=== PATIENT | female | born 1975 | race African-American/Black ===

== ENCOUNTER 2023-01-23 16:41 | Emergency (ER) | payer OTHER ==
[~2023-01-23] VITALS: Ht 170.2 cm; Wt 95.3 kg
[2023-01-23 17:26] LABS: BASOPHILS # (AUTO) 0.1 (0.0-0.1); BASOPHILS % 0.7 % (0.0-1.0); EOSINOPHILS # (AUTO) 0.5 (0.0-0.4); EOSINOPHILS % 5.8 % (0.0-6.0); HEMATOCRIT 33.5 % (34.2-44.1); HEMOGLOBIN 10.6 g/dL (12.0-16.0); LYMPHOCYTES # (AUTO) 2.7 (1.0-3.2); LYMPHOCYTES % 33.8 % (18.0-39.1); MEAN CORPUSCULAR HEMOGLOBIN 23.6 pg (28-32); MEAN CORPUSCULAR HGB CONC 31.6 g/dL (31-35); MEAN CORPUSCULAR VOLUME 74.6 fL (81-99); MONOCYTES # (AUTO) 0.5 (0.2-0.8); MONOCYTES % 5.6 % (4.4-11.3); NEUTROPHILS # (AUTO) 4.3 (2.1-6.9); NEUTROPHILS % 53.9 % (38.7-80.0); PLATELET COUNT 296 x10e3/uL (140-360); RED BLOOD COUNT 4.49 x10e6/uL (3.6-5.1); RED CELL DISTRIBUTION WIDTH 21.7 % (11.7-14.4)
[2023-01-23 17:45] LABS: % IRON SATURATION 67 % (15-50); ALBUMIN 3.8 g/dL (3.5-5.0); ALBUMIN/GLOBULIN RATIO 0.9 (0.8-2.0); ANION GAP 15.6 mmol/L (8-16); CALCIUM 9.1 mg/dL (8.4-10.2); CREATININE, SERUM 0.88 mg/dL (0.57-1.11); IRON 361 ug/dL (50-170); POTASSIUM 3.6 mmol/L (3.5-5.1); TOTAL IRON BINDING CAPACITY 538 ug/dL (261-478); TRANSFERRIN 384 mg/dL (180-382)
[2023-01-23] MEDS ORDERED: SODIUM CHLORIDE 0.9% 1000ML 1,000 ML IV ONE (17:45)
[2023-01-23 18:05] LABS: FERRITIN 13.27 ng/mL (4.63-204.00)
[2023-01-23] MEDS ORDERED: IOPAMIDOL 370 MG/ML 100 ML INFUS..BTL INJ ONE (18:13)
[2023-01-23] MEDS ORDERED: DEXTROSE 5% IV SCH (20:15)
[2023-01-23] MEDS ORDERED: [UNRECOGNIZED DRUG - OTHER] IV SCH (20:15)
[2023-01-23] MEDS ORDERED: HEPARIN IV SCH (20:15)
[2023-01-23] MEDS ORDERED: HEPARIN SOD (PORCINE) 5,000 UNIT/ML VIAL ONE (20:39)
[2023-01-23] MEDS ORDERED: HEPARIN 25,000 UNIT DRIP IV ONE (20:39)
[2023-01-23] MEDS ORDERED: HEPARIN SOD (PORCINE) 5,000 UNIT/ML VIAL IV ONE (20:45)
[2023-01-23 20:49] LABS: INR 0.88; PROTHROMBIN TIME 12.4 seconds (11.9-14.5)
[2023-01-24 00:51] VITALS: BP 144/84
== END 2023-01-24 00:38 | disposition other institution (70) ==
LOC: ER 16:49
DX: R06.00 Dyspnea, unspecified (principal); I26.99 Other pulmonary embolism without acute cor pulmonale; R53.83 Other fatigue; I10 Essential (primary) hypertension; D64.9 Anemia, unspecified
CPT/HCPCS: 36415; 71045; 71260; 80053; 82728; 83540; 84466; 84484; 84702; 85025; 85379; 85610; 85730; 93005; 99285; J1644; J7030; Q9967; U0002

== ENCOUNTER 2023-03-26 22:05 | Emergency (ER) | payer OTHER ==
[~2023-03-26] VITALS: Ht 170.2 cm; Wt 95.3 kg
[2023-03-26 22:53] LABS: BASOPHILS # (AUTO) 0.1 (0.0-0.1); BASOPHILS % 0.6 % (0.0-1.0); EOSINOPHILS # (AUTO) 0.7 (0.0-0.4); EOSINOPHILS % 7.2 % (0.0-6.0); HEMATOCRIT 34.1 % (34.2-44.1); HEMOGLOBIN 11.3 g/dL (12.0-16.0); LYMPHOCYTES # (AUTO) 3.2 (1.0-3.2); LYMPHOCYTES % 33.3 % (18.0-39.1); MEAN CORPUSCULAR HEMOGLOBIN 26.7 pg (28-32); MEAN CORPUSCULAR HGB CONC 33.1 g/dL (31-35); MEAN CORPUSCULAR VOLUME 80.4 fL (81-99); MONOCYTES # (AUTO) 0.5 (0.2-0.8); MONOCYTES % 5.5 % (4.4-11.3); NEUTROPHILS # (AUTO) 5.2 (2.1-6.9); NEUTROPHILS % 53.2 % (38.7-80.0); PLATELET COUNT 160 x10e3/uL (140-360); RED BLOOD COUNT 4.24 x10e6/uL (3.6-5.1); RED CELL DISTRIBUTION WIDTH 18.5 % (11.7-14.4)
[2023-03-26 23:13] LABS: ALBUMIN 4.1 g/dL (3.5-5.0); ANION GAP 18.7 mmol/L (8-16); CALCIUM 9.6 mg/dL (8.4-10.2); CREATININE, SERUM 1.04 mg/dL (0.57-1.11); POTASSIUM 3.7 mmol/L (3.5-5.1)
[2023-03-27 01:05] VITALS: O2SAT 98
== END 2023-03-27 01:05 | disposition home or self-care (01) ==
LOC: ER 22:12
DX: R60.9 Edema, unspecified (principal); I10 Essential (primary) hypertension; D25.9 Leiomyoma of uterus, unspecified; Z86.718 Personal history of other venous thrombosis and embolism; Z79.01 Long term (current) use of anticoagulants; M50.20 Other cervical disc displacement, unspecified cervical region
CPT/HCPCS: 36415; 80053; 83880; 85025; 99284

== ENCOUNTER 2024-03-24 20:38 | Emergency (ER) | payer SELFPAY ==
[~2024-03-24] VITALS: Ht 170.2 cm; Wt 99.8 kg
[2024-03-24] MEDS: ACETAMINOPHEN 325 MG TAB PO STA (20:58)
[2024-03-24] MEDS: SODIUM CHLORIDE 0.9% 1000ML 2,000 ML IV STA (20:58)
[2024-03-24] MEDS ORDERED: ACETAMINOPHEN 325 MG TAB ONE (20:59)
[2024-03-24 21:33] LABS: PREGNANCY TEST, URINE NEGATIVE (NEGATIVE)
[2024-03-24 21:35] LABS: AMPHETAMINES SCREEN,URINE NEGATIVE (NEGATIVE); BENZODIAZEPINES SCREEN,URINE NEGATIVE (NEGATIVE); CANNABINOIDS SCREEN,URINE NEGATIVE (NEGATIVE); METHADONE SCREEN, URINE NEGATIVE (NEGATIVE); OPIATES SCREEN,URINE NEGATIVE (NEGATIVE); PHENCYCLIDINE SCREEN,URINE NEGATIVE (NEGATIVE)
[2024-03-24 21:37] LABS: BASOPHILS % 0.4 % (0.0-1.0); EOSINOPHILS % 0.1 % (0.0-6.0); HEMATOCRIT 36.5 % (34.2-44.1); HEMOGLOBIN 11.6 g/dL (12.0-16.0); LYMPHOCYTES # (AUTO) 0.5 (1.0-3.2); LYMPHOCYTES % 7.2 % (18.0-39.1); MEAN CORPUSCULAR HGB CONC 31.8 g/dL (31-35); MEAN CORPUSCULAR VOLUME 75.4 fL (81-99); MONOCYTES # (AUTO) 0.4 (0.2-0.8); MONOCYTES % 5.9 % (4.4-11.3); NEUTROPHILS # (AUTO) 6.2 (2.1-6.9); PLATELET COUNT 187 x10e3/uL (140-360); RED BLOOD COUNT 4.84 x10e6/uL (3.6-5.1); RED CELL DISTRIBUTION WIDTH 19.9 % (11.7-14.4); WHITE BLOOD COUNT 7.24 x10e3/uL (4.8-10.8)
[2024-03-24 21:47] LABS: ALANINE AMINOTRANSFERASE 36 IU/L (0-55); ALBUMIN 3.7 g/dL (3.5-5.0); ALBUMIN/GLOBULIN RATIO 0.9 (0.8-2.0); ALKALINE PHOSPHATASE 111 IU/L (40-150); ANION GAP 14.4 mmol/L (8-16); BILIRUBIN,TOTAL 0.7 mg/dL (0.2-1.2); BLOOD UREA NITROGEN 10 mg/dL (7-26); BUN/CREATININE RATIO 9 (6-25); CALCIUM 9.1 mg/dL (8.4-10.2); CARBON DIOXIDE 23 mmol/L (22-29); CHLORIDE 101 mmol/L (98-107); CREATINE KINASE 92 IU/L (29-168); CREATININE, SERUM 1.11 mg/dL (0.57-1.11); EST GLOMERULAR FILTRATION RATE 61 ML/MIN (>=60); GLUCOSE 147 mg/dL (74-118); SODIUM 135 mmol/L (136-145); TOTAL PROTEIN 7.7 g/dL (6.5-8.1)
[2024-03-24 21:52] LABS: POTASSIUM 3.4 mmol/L (3.5-5.1)
[2024-03-24 21:53] LABS: INFLUENZAE A&B ANTIGEN (RAPID) NEGATIVE (NEGATIVE); STREPTOCOCCUS GRP A ANTIGEN NEGATIVE (NEGATIVE)
[2024-03-24 22:08] VITALS: PULSE 99; RESP 16; TEMP 100.1
[2024-03-24 22:17] VITALS: BP 144/78; PULSE 99; RESP 16; TEMP 100.1; O2SAT 98
[2024-03-24 22:49] LABS: TROPONIN I < 0.001 ng/mL (0-0.300)
== END 2024-03-24 22:15 | disposition home or self-care (01) ==
LOC: ER 20:43
DX: U07.1 COVID-19 (principal); I10 Essential (primary) hypertension; Z86.711 Personal history of pulmonary embolism; Z86.718 Personal history of other venous thrombosis and embolism
CPT/HCPCS: 36415; 80053; 80307; 81025; 82550; 83518; 83690; 83880; 84484; 85025; 87070; 87400; 93005; 99284; J7030; U0002